=== PATIENT | female | born 1990 | race Caucasian/White ===

== ENCOUNTER 2017-07-14 17:05 | Observation (INO) | payer MEDICAID ==
[~2017-07-14] VITALS: Ht 162.6 cm; Wt 101.4 kg
[2017-07-14] MEDS ORDERED: VITAMIN D250000 UNIT PO (17:08)
[2017-07-14 17:13] VITALS: BP 117/62; Ht 162.6 cm; Wt 101.4 kg
--- NOTE | 2017-07-14 17:20 | NUR ---
1654-RECEIVED VIA AMBULANCE STRETCHER TO ROOM WITH HISTORY OF FOOD BOLUS FROM ROAST BEEF. NPO AT PRESENT TIME FOR SURGERY TODAY. WILL ADMIT. MOVING AIRWAY GOOD, SEE VITAL SIGNS. RIGHT AC WITH PATENT SALINE LOCK.
--- NOTE | 2017-07-14 17:59 | NUR ---
1800-OP PERMITS SIGNED AND WITNESSED. STILL NPO STATUS.
--- NOTE | 2017-07-14 18:16 | NUR ---
PRE-OP MEDS GIVEN. TO GI LAB VIA STRETCHER.
--- NOTE | 2017-07-14 18:16 | NUR ---
URINE OBTAINED FOR PREOP TEST. URINE TAKEN TO THE LAB.
[2017-07-14 18:20] LABS: HCG URINE NEGATIVE (NEGATIVE)
--- NOTE | 2017-07-14 19:24 | NUR ---
PT GONE TO SURGERY, FAMILY AT BEDSIDE.
--- NOTE | 2017-07-14 19:58 | NUR ---
BACK FROM OR, DR. AVILA AT BEDSIDE. VSS 122/77, 86, AND 18. WILL CONTINUE TO MONITOR. CALL LIGHT IN REACH.
[2017-07-14] MEDS ORDERED: OMEPRAZOLE40 MG PO (20:31)
[2017-07-14] MEDS ORDERED: PEPCID40 MG PO (20:31)
[2017-07-14 20:32] VITALS: BP 114/71
--- NOTE | 2017-07-14 20:45 | NUR ---
DISCHARGE INSTRUCTIONS COMPLETED AND REVIEWED WITH PT. IV DC'D WITH TIP INTACT. WHEELED OUT TO VEHICLE.
== END 2017-07-14 20:47 | disposition home or self-care (01) ==
LOC: UNDOADMIN 17:05 → D.M2 17:05 → OBSVTIME 17:05 → D.M2 17:05 → EDSTATUS 07-15 18:37
PROVIDERS: Anesthesiology; ADMIT Internal Medicine Gastroenterology
DX: T18.128A Food in esophagus causing other injury, initial encounter (principal); X58.XXXA Exposure to other specified factors, initial encounter; K21.9 Gastro-esophageal reflux disease without esophagitis